=== PATIENT | male | born 1970 | race Two or more races ===

== ENCOUNTER 2017-11-19 11:23 | Emergency (ER) | payer SELFPAY ==
[~2017-11-19] VITALS: Ht 177.8 cm; Wt 77.1 kg
[2017-11-19 11:47] VITALS: BP 137/79
[2017-11-19 11:51] LABS: BASOPHILS % (AUTO) 1.4 % (0.0-2.0); EOSINOPHILS % (AUTO) 2.7 % (0.0-3.0); HEMATOCRIT 31.5 % (42.0-52.0); HEMOGLOBIN 10.2 G/DL (14.2-18.0); LYMPHOCYTES % (AUTO) 26.1 % (20.0-45.0); MEAN CORPUSCULAR VOLUME 85 FL (80-99); MONOCYTES % (AUTO) 7.6 % (1.0-10.0); NEUTROPHILS % (AUTO) 62.2 % (45.0-75.0); PLATELET COUNT 171 K/UL (150-450); RED CELL DISTRIBUTION WIDTH 13.2 % (11.6-14.8)
[2017-11-19 12:02] LABS: ANION GAP 8 mmol/L (5-15); BLOOD UREA NITROGEN 23 mg/dL (7-18); CALCIUM 8.5 MG/DL (8.5-10.1); CARBON DIOXIDE 27 MMOL/L (21-32); CHLORIDE 108 MMOL/L (98-107); CREATININE 1.4 MG/DL (0.55-1.30); SODIUM 143 MMOL/L (136-145)
[2017-11-19 12:06] LABS: ALANINE AMINOTRANSFERASE 16 U/L (12-78); ALBUMIN 3.9 G/DL (3.4-5.0); ALBUMIN/GLOBULIN RATIO 1.1 (1.0-2.7); ALKALINE PHOSPHATASE 82 U/L (46-116); ASPARTATE AMINO TRANSFERASE 17 U/L (15-37); BILIRUBIN,TOTAL 0.3 MG/DL (0.2-1.0)
--- NOTE | 2017-11-19 14:29 | Diagnostic Imaging Report ---
Indication: Altered mental status Technique: Contiguous 5 mm thick transaxial imaging of the head obtained in a Siemens Sensation [address] scanner. Soft tissue and bone windows generated. Automatic Exposure Control was utilized. Total Dose length Product (DLP): 1428.[address] Dose Index Volume (CTDIvol): 70.38 mGy Comparison: none Findings: There is mild prominence of the ventricles, basal cisterns, and cerebral sulci consistent with atrophy. Mild, nonspecific, white matter hypoattenuation is noted throughout the brain consistent with chronic small vessel disease. There is no midline shift, edema, acute hemorrhage, mass effect, or abnormal extra-axial fluid collections. Bones and extra osseous soft tissues are unremarkable. Impression: No acute intracranial bleed, mass effect or edema. Mild atrophy of the brain. Nonspecific white matter hypoattenuation probably due to chronic small vessel disease. The CT scanner at [facility] is accredited by the [employer] and the scans are performed using dose optimization techniques as appropriate to a performed exam including Automatic Exposure control.
[2017-11-19] MEDS ORDERED: Naloxone 1mg/ml 2ml IVP ONE ×3 (14:45→15:15)
[2017-11-19 16:00] VITALS: BP 137/79
[2017-11-20] MEDS ORDERED: METFORMIN HCL500 M1 ORAL (09:28)
--- NOTE | 2017-11-21 06:55 | Emergency Room Report ---
History of Present Illness General Chief Complaint: Generalized Weakness Source: Patient Present Illness HPI 47-year-old male presents ED for evaluation. Patient brought in by EMS. Found sleeping in bushes. Patient states he's been feeling weak for the last day. Unwilling to provide any additional history at this time. Denies alcohol use or drug use. Upon arrival patient showing no signs of distress. No other aggravating relieving factors. Denies any other associated symptoms Allergies: Coded Allergies: No Known Allergies (Unverified , 11/19/17) Patient History Past Medical History: seizures, psych hx Past Surgical History: none Pertinent Family History: none Social History: Reports: drug use; Denies: smoking, alcohol use Immunizations: UTD Reviewed Nursing Documentation: PMH: Agreed; PSxH: Agreed Nursing Documentation-PMH Past Medical History: No History, Except For Hx Hypertension: Yes History Of Psychiatric Problem: Yes - AGORAPHOBIA Hx Seizures: Yes Review of Systems All Other Systems: limited Physical Exam Vital Signs Date Time Temp Pulse Resp B/P (MAP) Pulse Ox O2 Delivery O2 Flow Rate FiO2 11/19/17 11:15 97.3 72 16 137/79 100 Room Air 97.3 Sp02 EP Interpretation: reviewed, normal General Appearance: GCS 15, non-toxic, lethargic Head: normocephalic ENT: normal ENT inspection Neck: normal inspection Respiratory: chest non-tender, lungs clear, normal breath sounds, speaking full sentences Cardiovascular #1: regular rate, rhythm, no edema Gastrointestinal: normal inspection Rectal: deferred Genitourinary: no CVA tenderness Musculoskeletal: normal inspection Neurologic: other - lethargic Psychiatric: other - lethargic Skin: normal inspection Lymphatic: normal inspection Medical Decision Making Diagnostic Impression: Primary Impression: Substance abuse ER Course Hospital Course 47-year-old male presents to ED presenting with weakness, lethargy. Found in bushes Differential diagnoses include: Psychosis, EtOH, drug abuse Clinical course patient placed on stretcher. On nuclear monitoring technician. After initial history and physical ordered labs, IV fluids, CT brain. Labs reviewed-electrolytes okay, no leukocytosis, hemoglobin/hematocrit stable Patient unable to provide urine at this time CT brain shows no acute pathology Patient noted to have pinpoint pupils. Given Narcan and is now more awake Patient is now awake alert oriented x3, ambulating. patient declined substance abuse counseling i. I feel this is a highly complex case requiring extensive working including EKG/Rhythm strip, Xray/CT/US, Blood/urine lab work, repeat exams while in ED, and administration of strong opiates/narcotics for pain control, admission to hospital or close patient follow up. Diagnosis - substance abuse Stable and discharged to home. Followup with PMD. Return to ED if symptoms recur or worsen Labs Test 11/19/17 11:35 White Blood Count 7.0 K/UL (4.8-10.8) Red Blood Count 3.70 M/UL (4.70-6.10) Hemoglobin 10.2 G/DL (14.2-18.0) Hematocrit 31.5 % (42.0-52.0) Mean Corpuscular Volume 85 FL (80-99) Mean Corpuscular Hemoglobin 27.5 PG (27.0-31.0) Mean Corpuscular Hemoglobin Concent 32.3 G/DL (32.0-36.0) Red Cell Distribution Width 13.2 % (11.6-14.8) Platelet Count 171 K/UL (150-450) Mean Platelet Volume 6.7 FL (6.5-10.1) Neutrophils (%) (Auto) 62.2 % (45.0-75.0) Lymphocytes (%) (Auto) 26.1 % (20.0-45.0) Monocytes (%) (Auto) 7.6 % (1.0-10.0) Eosinophils (%) (Auto) 2.7 % (0.0-3.0) Basophils (%) (Auto) 1.4 % (0.0-2.0) Sodium Level 143 MMOL/L (136-145) Potassium Level 4.0 MMOL/L (3.5-5.1) Chloride Level 108 MMOL/L (98-107) Carbon Dioxide Level 27 MMOL/L (21-32) Anion Gap 8 mmol/L (5-15) Blood Urea Nitrogen 23 mg/dL (7-18) Creatinine 1.4 MG/DL (0.55-1.30) Estimat Glomerular Filtration Rate 54.1 mL/min (>60) Glucose Level 158 MG/DL (74-106) Calcium Level 8.5 MG/DL (8.5-10.1) Total Bilirubin 0.3 MG/DL (0.2-1.0) Aspartate Amino Transf (AST/SGOT) 17 U/L (15-37) Alanine Aminotransferase (ALT/SGPT) 16 U/L (12-78) Alkaline Phosphatase 82 U/L (46-116) Total Protein 7.4 G/DL (6.4-8.2) Albumin 3.9 G/DL (3.4-5.0) Globulin 3.5 g/dL Albumin/Globulin Ratio 1.1 (1.0-2.7) Salicylates Level 8.6 ug/mL (2.8-20) Acetaminophen Level < 2 MCG/ML (10-30) Serum Alcohol < 3 mg/dL CT/MRI/US Diagnostic Results CT/MRI/US Diagnostic Results : Imaging Test Ordered: CT head Impression no acute process Last Vital Signs Date Time Temp Pulse Resp B/P (MAP) Pulse Ox O2 Delivery O2 Flow Rate FiO2 11/19/17 16:00 97.3 80 16 137/79 100 Room Air 97.3 Status: improved Disposition: HOME, SELF-CARE Condition: Stable Patient Instructions: Substance Use Disorder Ubaldo Reeves MD Nov 21, 2017 06:55
== END 2017-11-19 16:00 | disposition home or self-care (01) ==
LOC: EDBD 11:23 → EMR 12:30
DX: F19.10 Other psychoactive substance abuse, uncomplicated (principal); I10 Essential (primary) hypertension; G31.9 Degenerative disease of nervous system, unspecified
CPT/HCPCS: 36415; 70450; 80053; 85025; 96374; 96375; 99284; G0480; J2310; 80329

== ENCOUNTER 2017-11-20 09:31 | Emergency (ER) | payer SELFPAY ==
[~2017-11-20] VITALS: Ht 190.5 cm; Wt 95.3 kg
[~2017-11-20 09:31] MED LIST: METFORMIN HCL500 M1 ORAL
[2017-11-20 09:45] VITALS: BP 155/70
--- NOTE | 2017-11-20 10:28 | Emergency Room Report ---
History of Present Illness General Chief Complaint: Pain Source: Patient, Medical Record Present Illness HPI The patient was brought in by ambulance. Patient stated he did not want to be seen in the emergency department and refused medical screening. Allergies: Coded Allergies: No Known Allergies (Unverified , 11/19/17) Nursing Documentation-[facility] Past Medical History: No History, Except For Hx Hypertension: Yes Hx Diabetes: Yes History Of Psychiatric Problem: Yes - PTSD Hx Seizures: Yes Physical Exam Vital Signs Date Time Temp Pulse Resp B/P (MAP) Pulse Ox O2 Delivery O2 Flow Rate FiO2 11/20/17 09:25 98.5 85 18 155/70 97 Room Air 98.4 Medical Decision Making Diagnostic Impression: Primary Impression: Pain Last Vital Signs Date Time Temp Pulse Resp B/P (MAP) Pulse Ox O2 Delivery O2 Flow Rate FiO2 11/20/17 09:45 98.5 18 155/70 97 Room Air 98.4 11/20/17 09:25 85 Status: unchanged Disposition: LEFT W/OUT BEING SEEN Condition: Stable Referrals: NOT CHOSEN IPA/,REFERRING (PCP) Kenney Edwards Nov 20, 2017 10:28
== END 2017-11-20 10:00 | disposition left against medical advice (07) ==
LOC: EDBD 09:31 → EMR 09:48
DX: R52 Pain, unspecified (principal); I10 Essential (primary) hypertension; E11.9 Type 2 diabetes mellitus without complications; F43.10 Post-traumatic stress disorder, unspecified; Z53.21 Procedure and treatment not carried out due to patient leaving prior to being seen by health care provider
CPT/HCPCS: 99281

== ENCOUNTER 2019-10-15 23:37 | Inpatient (IN) | payer BC ==
[~2019-10-15] VITALS: Ht 190.5 cm; Wt 96.2 kg
--- NOTE | 2019-10-16 04:25 | NUR ---
NURSE NOTES: received orders from DR. Sailnas for pt. coming in as direct admit from [place]- per doctor to call back with patients home meds- to order CBC, CMP, mag, phos, Troponin, Renal US for acute kidney injury, 2D Echo, EKG, Cardiac/ Renal diet, ASA 81mg PO daily- orders carried out.
--- NOTE | 2019-10-16 04:53 | NUR ---
NURSE NOTES: Received report from Kera at [facility]- pt. complaining of chest pain-no radiating pain- mid-sternal pain, pt. had cardiac cath done 2 days ago at [facility] up right wrist, Troponin was (0.07) 10/15/19 at 21:10 and (0.07) 10/15/19 at 10:20pm, D dimer 0.52, no infection noted, LFA 18G inserted 10/15/19 at 20:30pm,- pt. received in ER 1L NS, 0.5mg Dilaudid, 15mg Toradol, [place] 5/325 - VS stable- per endorsement- pt. remains afebrile-ambulance leaving with patient from [facility] shortly- awaiting for patient to arrive.
[2019-10-16 06:05] VITALS: BP 150/86
--- NOTE | 2019-10-16 06:05 | NUR ---
NURSE NOTES: Pt. brought from [place] as direct admit by [facility] by Mile Phillips RN- pt. brought by [facility]- pt. awake- A/O x's4- able to make needs known- alarm security or surveillance monitor placed, full body assessment done- skin intact- belongings list checked and signed by patient, pt. refusing VRE /CRE swab but agrees to be swabbed for MRSA Nares, pt. appears to be sating well on room air at 96%- no distress noted, patients abdominal area is round- non-tender or pain, pt. appears to be NSR on monitor, pt. has urinal as bedside, bed in lowest position and call light within easy reach, bed locked in position, 18G LFA intact and patent, safety measures continued, will continue with plan of care. Addendum: 10/16/19 at 0729 by TOMAS MARAVILLA RN RN pt. states he has no home medications that he is taking and has history of cardiac catheterization, Diabetes- but no medications, and chest pain.
--- NOTE | 2019-10-16 06:05 | NUR ---
NURSE NOTES: pt. brought by ambulance form [facility] direct ADMIT brought by Mile Myers RN w/ [facility]- stated pt. has history of substance abuse, complaining of chest pain- will continue to monitor patient.
--- NOTE | 2019-10-16 06:14 | NUR ---
NURSE NOTES: calling DR. Salinas for pain medications requested by patient for chest pain- no radiating pain noted- pt. appears to be resting comfortably- no distress noted- unable to leave message for doctor as voicemail box is full. Addendum: 10/16/19 at 0656 by TOMAS MARAVILLA RN RN Will try calling doctor again.
--- NOTE | 2019-10-16 07:16 | NUR ---
HAND-OFF: Report given to Gilberto Levin, pt. remains stable and no signs of distress noted- nurse aware to contact DR. Salinas pt. complaining of chest pain, pt. requesting pain medications, to do EKG and swab pt. for MRSA nares.
--- NOTE | 2019-10-16 07:30 | NUR ---
NURSE NOTES: Received patient from JOHNNIE Coulter. Patient is aox4, and c/o chest pain. Patient is ambulatory with no s/s of weakness noted. patient shows SR on the alarm security or surveillance monitor. bed is in lowest position, locked. Optimal HOB placement, Side Rails x2 and call light within reach. Will continue to monitor.
[2019-10-16] MEDS ORDERED: Nitroglycerin Subl 0.4mg tab SL PRN (07:45)
--- NOTE | 2019-10-16 07:45 | NUR ---
NURSE NOTES: EKG performed, MRSA nares swab, and offered nitroglycerin tabs as ordered for chest pain. Patient refused nitroglycerin.
--- NOTE | 2019-10-16 07:50 | NUR ---
NURSE NOTES: Dr. Salinas called and gave orders, will put orders in accordingly.
[2019-10-16 08:00] VITALS: BP 154/88
[2019-10-16] MEDS ORDERED: HYDROcodone/Acetamin 5/325 tab ORAL PRN (08:00)
[2019-10-16 08:02] LABS: BASOPHILS % (AUTO) 1.7 % (0.0-2.0); EOSINOPHILS % (AUTO) 2.2 % (0.0-3.0); HEMATOCRIT 31.8 % (42.0-52.0); HEMOGLOBIN 10.7 G/DL (14.2-18.0); LYMPHOCYTES % (AUTO) 20.8 % (20.0-45.0); MEAN CORPUSCULAR VOLUME 83 FL (80-99); MONOCYTES % (AUTO) 8.8 % (1.0-10.0); NEUTROPHILS % (AUTO) 66.5 % (45.0-75.0); PLATELET COUNT 259 K/UL (150-450); RED BLOOD COUNT 3.83 M/UL (4.70-6.10); RED CELL DISTRIBUTION WIDTH 12.3 % (11.6-14.8); WHITE BLOOD COUNT 7.7 K/UL (4.8-10.8)
[2019-10-16 08:20] VITALS: BP 151/80
--- NOTE | 2019-10-16 08:22 | NUR ---
NURSE NOTES: Offered patient [place] 5 1 tab as ordered for pain. Patient refused. Patient states "Dilaudid is better and works better for him." Charge nurse notified.
--- NOTE | 2019-10-16 08:25 | NUR ---
NURSE NOTES: Informed Dr Salinas patient verbalized pain on his chest radiating on leg. Dr Salinas ordered [place] for pain. per patient norco is not helping him he wants diluadid. Informed MD but he refused to order the medication. Patient asked for percocet instead he also denied. patien requested for different doctor Dr Salinas informed and he said he cant. He said he will sign AMA. DR Salinas made aware.
[2019-10-16 08:26] LABS: ALANINE AMINOTRANSFERASE 12 U/L (12-78); ALBUMIN 3.2 G/DL (3.4-5.0); ALBUMIN/GLOBULIN RATIO 0.9 (1.0-2.7); ALKALINE PHOSPHATASE 82 U/L (46-116); ANION GAP 11 mmol/L (5-15); ASPARTATE AMINO TRANSFERASE 11 U/L (15-37); BILIRUBIN,TOTAL 0.3 MG/DL (0.2-1.0); BLOOD UREA NITROGEN 29 mg/dL (7-18); CALCIUM 8.6 MG/DL (8.5-10.1); CARBON DIOXIDE 24 MMOL/L (21-32); CHLORIDE 109 MMOL/L (98-107); CREATININE 1.8 MG/DL (0.55-1.30); PHOSPHORUS 4.3 MG/DL (2.5-4.9); SODIUM 144 MMOL/L (136-145)
--- NOTE | 2019-10-16 08:40 | Consultation ---
History of Present Illness General Date patient seen: Oct 16, 2019 Time patient seen: 08:00 Chief Complaint: sob, chest pain Referring physician: Dr Salinas Reason for Consultation: SOB Present Illness HPI 49 y/old male with no significant PMH, was transferred from [facility] with c/o chest pain. He reported CP and SOB for 2 days, lasting for an hour or so. patient undergone few days ago cardiac cath at [facility] which apparently was normal, no intervention was done. Patient reported daily smoking of marijuana and tobacco. He denied fever, chills, No nausea, vomiting, diarrhea, abd pain,. Laboratory workup revealed evidence of CRIS: BUN 29, creat 1.76; mildly elevated D dimer-0.51, elevated troponin 0.07. ECG revealed no acute ischemic changes. CXR was stable . Patient was transferred to [facility] for further management. Allergies: Coded Allergies: No Known Allergies (Unverified , 10/16/19) Patient History Healthcare decision maker Priscila Flores Resuscitation status Full Code Advanced Directive on File No Review of Systems Constitutional: Reports: no symptoms Eye: Reports: no symptoms ENT: Reports: no symptoms Respiratory: Reports: see HPI Cardiovascular: Reports: see HPI Gastrointestinal: Reports: no symptoms Genitourinary: Reports: no symptoms Musculoskeletal: Reports: no symptoms Skin: Reports: no symptoms Psychiatric: Reports: no symptoms Neurological: Reports: no symptoms Endocrine: Reports: no symptoms Hematologic/Lymphatic: Reports: no symptoms Physical Exam General Appearance: other - mild distresss Lines, tubes and drains: peripheral HEENT: normocephalic, atraumatic, anicteric, mucous membranes moist Neck: non-tender, supple, normal inspection Respiratory/Chest: chest wall non-tender, lungs clear, no respiratory distress , no accessory muscle use Cardiovascular/Chest: normal peripheral pulses, normal rate, no JVD Abdomen: normal bowel sounds, non tender, soft Extremities: normal range of motion, non-tender, no calf tenderness Neurologic: orchestra leader II-XII grossly normal, no motor/sensory deficits, alert, oriented x 3, responsive Musculoskeletal: normal muscle bulk Last 24 Hour Vital Signs Date Time Temp Pulse Resp B/P (MAP) Pulse Ox O2 Delivery O2 Flow Rate FiO2 10/16/19 08:20 79 151/80 10/16/19 06:07 Room Air 10/16/19 06:05 98.2 71 16 150/86 (107) 96 10/16/19 05:59 77 Laboratory Tests Test 10/16/19 07:40 10/16/19 07:45 White Blood Count 7.7 K/UL (4.8-10.8) Red Blood Count 3.83 M/UL (4.70-6.10) L Hemoglobin 10.7 G/DL (14.2-18.0) L Hematocrit 31.8 % (42.0-52.0) L Mean Corpuscular Volume 83 FL (80-99) Mean Corpuscular Hemoglobin 27.8 PG (27.0-31.0) Mean Corpuscular Hemoglobin Concent 33.5 G/DL (32.0-36.0) Red Cell Distribution Width 12.3 % (11.6-14.8) Platelet Count 259 K/UL (150-450) Mean Platelet Volume 6.0 FL (6.5-10.1) L Neutrophils (%) (Auto) 66.5 % (45.0-75.0) Lymphocytes (%) (Auto) 20.8 % (20.0-45.0) Monocytes (%) (Auto) 8.8 % (1.0-10.0) Eosinophils (%) (Auto) 2.2 % (0.0-3.0) Basophils (%) (Auto) 1.7 % (0.0-2.0) Sodium Level 144 MMOL/L (136-145) Potassium Level 4.0 MMOL/L (3.5-5.1) Chloride Level 109 MMOL/L (98-107) H Carbon Dioxide Level 24 MMOL/L (21-32) Anion Gap 11 mmol/L (5-15) Blood Urea Nitrogen 29 mg/dL (7-18) H Creatinine 1.8 MG/DL (0.55-1.30) H Estimat Glomerular Filtration Rate 40.1 mL/min (>60) Glucose Level 190 MG/DL (74-106) H Calcium Level 8.6 MG/DL (8.5-10.1) Phosphorus Level 4.3 MG/DL (2.5-4.9) Magnesium Level 2.3 MG/DL (1.8-2.4) Total Bilirubin 0.3 MG/DL (0.2-1.0) Aspartate Amino Transf (AST/SGOT) 11 U/L (15-37) L Alanine Aminotransferase (ALT/SGPT) 12 U/L (12-78) Alkaline Phosphatase 82 U/L (46-116) Troponin I Pending Total Protein 6.9 G/DL (6.4-8.2) Albumin 3.2 G/DL (3.4-5.0) L Globulin 3.7 g/dL Albumin/Globulin Ratio 0.9 (1.0-2.7) L Triglycerides Level Pending Cholesterol Level Pending LDL Cholesterol Pending HDL Cholesterol Pending Cholesterol/HDL Ratio Pending Height (Feet): 6 Height (Inches): 3.00 Weight (Pounds): 212 Medications Current Medications Medications (Trade) Dose Ordered Sig/Valarie Route PRN Reason Start Time Stop Time Status Last Admin Dose Admin Acetaminophen (Tylenol) 650 mg Q6H PRN ORAL Mild Pain/Temp > 100.5 10/16/19 08:15 11/15/19 08:14 Acetaminophen/ Hydrocodone Bitart (Lynn 5/325) 1 tab Q6H PRN ORAL Severe Pain (Pain Scale 7-10) 10/16/19 08:00 10/23/19 07:59 Aspirin (ASA) 81 mg DAILY ORAL 10/16/19 09:00 11/15/19 08:59 10/16/19 08:20 Metoprolol Tartrate (Lopressor) 25 mg Q12HR ORAL 10/16/19 09:00 11/15/19 08:59 10/16/19 08:20 Nitroglycerin (Ntg) 0.4 mg Q5M PRN SL Prn Chest Pain 10/16/19 07:45 11/15/19 07:44 Ondansetron HCl (Zofran) 4 mg Q4H PRN IVP Nausea & Vomiting 10/16/19 08:15 11/15/19 08:14 Pantoprazole (Protonix) 40 mg DAILY ORAL 10/16/19 09:00 11/15/19 08:59 10/16/19 08:19 Assessment/Plan Assessment/Plan: ASSESSMENT CP SOB elevated troponin elevated D dimer anemia CRIS marijuana user, daily tobacco user PLAN OF CARE REZA s/p cardiac cath 2 days ago at [facility], apparently normal, no stent minimally elevated troponin could be 2 to it repeat troponin this am ASA, BB, Nitro prn ECG stable, no acute ischemic changes do Venous Duplex BLE and VQ scan stat O2 prn titrate to keep pulse ox > 92% pulm toilet as needed fup with CXR renal US, monitor renal parameters, correct lytes as needed, avoid nephrotoxics monitor HH with goal to keep Hgb above 7 careers counsellor on smoking cessation and decreasing marijuana use case discussed and evaluated by supervising physician Leila Ledezma NP Oct 16, 2019 08:40
[2019-10-16] MEDS ORDERED: Aspirin Baby 81mg ORAL SCH (09:00)
[2019-10-16 09:06] LABS: CHOLESTEROL 183 MG/DL (< 200); HDL CHOLESTEROL 37 MG/DL (40-60); TRIGLYCERIDES 150 MG/DL (30-150)
[2019-10-16 09:21] LABS: FERRITIN 73 NG/ML (8-388)
[2019-10-16 09:56] LABS: % IRON SATURATION 27 % (15-50); IRON 63 ug/dL (50-175); TOTAL IRON BINDING CAPACITY 233 ug/dL (250-450)
--- NOTE | 2019-10-16 10:25 | NUR ---
AMA: SEE AMA FORM. Patient took out IV. Removed ID Band.
--- NOTE | 2019-10-16 12:21 | Diagnostic Imaging Report ---
EXAM: US Retroperitoneal Complete, Renal CLINICAL HISTORY: RENAL-C TECHNIQUE: Real-time complete ultrasound of the retroperitoneum with image documentation. COMPARISON: None FINDINGS: Inferior vena cava: Visualized portions of the IVC are unremarkable. Right kidney: Right kidney measures 13.6 cm in length. No hydronephrosis or stone. Left kidney: Left kidney measures 12.1 cm in length. No hydronephrosis or stone. Bladder: Underdistended bladder. IMPRESSION: No hydronephrosis or stone.
--- NOTE | 2019-10-16 12:22 | Diagnostic Imaging Report ---
EXAM: US Duplex Bilateral Lower Extremities Veins CLINICAL HISTORY: DVT TECHNIQUE: Real-time duplex ultrasound scan of the bilateral lower extremity veins integrating B-mode two-dimensional vascular structure, Doppler spectral analysis, color flow Doppler imaging and compression. COMPARISON: None FINDINGS: Right deep veins: Unremarkable. No DVT in the right common femoral, femoral, proximal deep femoral or popliteal veins. The veins demonstrate normal color flow, are normally compressible, with normal phasic flow and/or augmentation response. Right superficial veins: Unremarkable. No thrombus in the visualized right great saphenous vein. Left deep veins: Unremarkable. No DVT in the left common femoral, femoral, proximal deep femoral or popliteal veins. The veins demonstrate normal color flow, are normally compressible, with normal phasic flow and/or augmentation response. Left superficial veins: Unremarkable. No thrombus in the visualized left great saphenous vein. Soft tissues: No acute findings. No popliteal cyst. IMPRESSION: No deep venous thrombosis identified in either lower extremity.
--- NOTE | 2019-10-18 10:42 | Discharge Summary ---
Discharge Summary Discharge Summary _ DATE OF ADMISSION: 10/16/201920 DATE OF DISCHARGE: 10/16/2019 Patient left AGAINST MEDICAL ADVICE REASON FOR ADMISSION: 49 years old male with no significant past medical history , was transferred from [facility] with complaint of chest pain. Patient reported chest pain and shortness of breath for 2 days , lasting for an hour or so. Patient apparently undergone 2 days ago cardiac catheterization at [facility], which apparently was normal. No intervention was done. Patient reported daily smoking marijuana and tobacco. He denied fever or chills. He denied nausea , vomiting , diarrhea, abdominal pain. Laboratory work-up revealed evidence of acute kidney injury BUN 29, creatinine 1.76, mildly elevated d-dimer 0.51. Elevated troponin 0.07. EKG revealed no acute ischemic changes. Chest x-ray was stable. Patient subsequently was transferred to [facility] for further management. CONSULTANTS: pulmonary/critical care Dr. Peralta [facility] COURSE: Patient admitted to direct observational unit. Patient status post cardiac catheterization 2 days ago at [facility], which apparently was normal and no intervention was done. Patient noted to have minimally elevated troponin , which could be secondary to recent cardiac catheterization. Follow-up troponin was normal. Lipid panel revealed stable triglyceride and total cholesterol , but elevated LDL 117 and low HDL 37. Iron panel revealed stable iron ; vitamin B12 and folate within normal limits. Patient started on aspirin , beta-kiarra and nitroglycerin as needed. EKG was stable , no acute ischemic changes. Venous duplex bilateral lower extremity revealed no evidence of acute DVT. VQ scan was pending. Renal ultrasound revealed no hydronephrosis. Patient was counseled to avoid nephrotoxic , including nonsteroidal anti- inflammatory medication. Patient was counseled on smoking cessation and decrease marijuana use. later the same day , patient decided to leave AGAINST MEDICAL ADVICE. The risks and consequences of signing AGAINST MEDICAL ADVICE were discussed with patient in detail. Patient verbalized understanding, nevertheless signed AMA form and left. FINAL DIAGNOSES: Chest pain Shortness of breath Elevated troponin -resolved Elevated d-dimer Anemia Acute kidney injury Marijuana user, daily Tobacco user Leila Ledezma NP Oct 18, 2019 10:42
--- NOTE | 2019-10-18 13:04 | NUR ---
*-* INSURANCE *-* ALL AVAILABLE CLINICALS HAVE BEEN FAXED TO: Oskar Montes CM/CAMILO Dept at [phone] please send clinicals to: [phone].
--- NOTE | 2019-10-22 12:20 | Coder Physician Query ---
Clarification is required for compliance, coding accuracy, and to reflect severity of illness for this patient Dear Dr. Salinas Date: 10/22/2019 Finish Sander/CDS' Name: CLAIRE Toth REASON FOR ADMISSION: 49 years old male with no significant past medical history , was transferred from [facility] with complaint of chest pain. Patient status post cardiac catheterization 2 days ago at [facility], which apparently was normal and no intervention was done. Patient noted to have minimally elevated troponin , which could be secondary to recent cardiac catheterization. Follow-up troponin was normal. EKG was stable , no acute ischemic changes. Chest x-ray was stable. FINAL DIAGNOSES: Chest pain Shortness of breath Elevated troponin -resolved Elevated d-dimer Please document the suspected etiology of Chest Pain: [x] Acute Coronary Syndrome [] Pericarditis [] Anxiety [] Cancer [] Pneumonia [] Costochondritis [] Pneumothorax [] GERD/Esophagitis [] Pulmonary embolism [] Other: [] Unable to determine Scott Salinas M.D. Date Please also document in your Progress Notes and/or Discharge Summary and indicate if the condition was present on admission. MTDD
== END 2019-10-16 10:33 | disposition left against medical advice (07) | DRG 311 ==
LOC: 2W 10-16 06:12 → MERGE 10-16 06:12
DX: I24.9 Acute ischemic heart disease, unspecified (principal); N17.9 Acute kidney failure, unspecified; R74.8 Abnormal levels of other serum enzymes; D64.9 Anemia, unspecified; F17.200 Nicotine dependence, unspecified, uncomplicated; R06.02 Shortness of breath; F12.90 Cannabis use, unspecified, uncomplicated
CPT/HCPCS: 36415; 76770; 80053; 80061; 82607; 82728; 82746; 83540; 83550; 83735; 84100; 84484; 85025; 87081; 93005; 93970